=== PATIENT | female | born 1960 | race Caucasian/White ===

== ENCOUNTER 2017-03-17 07:46 | Emergency (ER) | payer MEDICAID ==
[2017-03-17 07:52] VITALS: BP 129/90; PULSE 127; RESP 22; TEMP 98.2; O2SAT 96
--- NOTE | 2017-03-17 08:21 | EDPHY ---
H & P Time Seen by Provider: 03/17/17 08:02 HPI/ROS: CHIEF COMPLAINT: Mental health evaluation. HISTORY OF PRESENT ILLNESS: This patient 56 year old female with history of PTSD presenting with manic affect and tangential thought process. She was recently admitted for three days in [place] for nausea and vomiting. She states she was also seen last week by [facility], and received a change in medications. Her father at bedside states this medication change "flipped her personality 180 degrees", and rather than being combative is now very sweet and helpful. This morning, she woke up very early and began to move furniture and throw things, and her father states she was not behaving rationally, so he called police for help. The patient states she is very happy and her sensation is similar to that after running a triathlon. She states she feel she needs to stay busy, and was only able to sleep four hours last night. She denies hallucinations or other associated symptoms. She denies suicidal or homicidal ideation. REVIEW OF SYSTEMS: Constitutional: No fever, no chills Eyes: No visual changes ENT: No sore throat Respiratory: No cough, no shortness of breath Cardiac: No chest pain Gastrointestinal: No nausea, no vomiting, no abdominal pain Genitourinary: No hematuria, no dysuria Musculoskeletal: No leg pain or swelling Skin: No rash Neurological: No headache, no numbness, no weakness Psychiatric: No depression Past Medical/Surgical History: PTSD Social History: Father at bedside. . Smoking Status: Former smoker Physical Exam: General Appearance: Alert, no distress Eyes: Pupils equal and round, no conjunctival pallor or injection ENT, Mouth: Mucous membranes moist Neck: Normal inspection Respiratory: Lungs are clear to auscultation Cardiovascular: Regular rate and rhythm Gastrointestinal: Abdomen is soft and non- tender Neurological: A&O, nonfocal, normal gait Skin: Warm and dry, no rash Extremities: Nontender, no pedal edema Psychiatric: Tangential thought process, appears manic. Constitutional: Initial Vital Signs Temperature (C) 36.8 C 03/17/17 07:50 Heart Rate 127 H 03/17/17 07:50 Respiratory Rate 22 H 03/17/17 07:50 Blood Pressure 129/90 H 03/17/17 07:50 O2 Sat (%) 96 03/17/17 07:50 O2 Delivery Mode Room Air Allergies/Adverse Reactions: haloperidol [From Haldol] Allergy (Verified 03/17/17 07:47) rigidity haloperidol lactate [From Haldol] Allergy (Verified 03/17/17 07:47) rigidity hydrocodone Allergy (Verified 03/17/17 07:47) Home Medications: Medication Instructions Recorded Herbals/Supplements -Info Only 1 ea PO DAILY 06/08/14 Ipratropium/Albuterol [Duoneb (*)] 3 ml IH PRN PRN 06/08/14 Multivitamins [Multivitamin (*)] 1 each PO DAILY 06/08/14 SUMAtriptan [Imitrex 50 MG (*)] 50 mg PO Q2H PRN 06/08/14 clonazePAM [Klonopin (*)] 0.5 mg PO DAILY PRN 06/08/14 clonazePAM [Klonopin (*)] 0.5 mg PO HS 06/08/14 traZODone [traZODONE 100MG (*)] 100 mg PO HS 06/08/14 Ondansetron Odt [Zofran Odt 4 mg 4 mg PO Q6 PRN #30 tab 06/12/14 (*)] Pantoprazole Sodium [Protonix 40mg 40 mg PO DAILY #30 tab 06/15/14 (*)] Albuterol [Proventil Inhaler HFA 1 - 2 puffs IH Q4PRN PRN #1 mdi 08/30/14 (*)] oxyCODONE/APAP 5/325 [Percocet 1 tab PO 11/06/15 5/325] Medical Decision Making ED Course/Re-evaluation: Medically cleared for mental health evaluation. This patient was seen by mental health and felt appropriate for outpatient treatment of hillary. I agree with this assessment. She does not meet criteria for a mental health hold. She states that she will follow up with mental health as suggested. Her father and usual therapist are in agreement with this plan. Differential Diagnosis: Differential diagnosis includes though it is not limited to suicidal ideation, overdose, acute psychosis, self-injury, alcohol withdrawal. - Data Points Laboratory Results: Laboratory Results 03/17/17 09:05 03/17/17 09:05 03/17/17 03/17/17 03/17/17 09:05 09:05 09:05 WBC RBC Hgb Hct MCV MCH MCHC RDW Plt Count MPV Neut % (Auto) Lymph % (Auto) Cavalier % (Auto) Eos % (Auto) Baso % (Auto) Nucleat RBC Rel Count Absolute Neuts (auto) Absolute Lymphs (auto) Absolute Monos (auto) Absolute Eos (auto) Absolute Basos (auto) Absolute Nucleated RBC Immature Gran % Immature Gran # Sodium 139 mEq/L mEq/L (134-144) Potassium 3.8 mEq/L mEq/L (3.5-5.2) Chloride 103 mEq/L mEq/L (97-110) Carbon Dioxide 24 mEq/l mEq/l (22-31) Anion Gap 12 mEq/L mEq/L (8-16) BUN 8 mg/dL mg/dL (7-23) Creatinine 0.8 mg/dL mg/dL (0.6-1.0) Estimated GFR > 60 Glucose 79 mg/dL mg/dL (70-100) Calcium 9.7 mg/dL mg/dL (8.5-10.4) Beta HCG, Qual NEGATIVE Urine Opiates Screen NEGATIVE (NEGATIVE) Urine Barbiturates NEGATIVE (NEGATIVE) Ur Phencyclidine Scrn NEGATIVE (NEGATIVE) Ur Amphetamine Screen NEGATIVE (NEGATIVE) U Benzodiazepines Scrn NEGATIVE (NEGATIVE) Urine Cocaine Screen NEGATIVE (NEGATIVE) U Marijuana (THC) Screen NON-NEGATIVE H (NEGATIVE) Ethyl Alcohol < 10 mg/dL mg/dL (0-10) 03/17/17 09:05 WBC 7.27 10^3/uL 10^3/uL (3.80-9.50) RBC 4.89 10^6/uL 10^6/uL (4.18-5.33) Hgb 15.3 g/dL g/dL (12.6-16.3) Hct 43.2 % % (38.0-47.0) MCV 88.3 fL fL (81.5-99.8) MCH 31.3 pg pg (27.9-34.1) MCHC 35.4 g/dL g/dL (32.4-36.7) RDW 12.3 % % (11.5-15.2) Plt Count 227 10^3/uL 10^3/uL (150-400) MPV 9.9 fL fL (8.7-11.7) Neut % (Auto) 77.5 % H % (39.3-74.2) Lymph % (Auto) 12.0 % L % (15.0-45.0) Cavalier % (Auto) 9.8 % % (4.5-13.0) Eos % (Auto) 0.0 % L % (0.6-7.6) Baso % (Auto) 0.3 % % (0.3-1.7) Nucleat RBC Rel Count 0.0 % % (0.0-0.2) Absolute Neuts (auto) 5.64 10^3/uL 10^3/uL (1.70-6.50) Absolute Lymphs (auto) 0.87 10^3/uL L 10^3/uL (1.00-3.00) Absolute Monos (auto) 0.71 10^3/uL 10^3/uL (0.30-0.80) Absolute Eos (auto) 0.00 10^3/uL L 10^3/uL (0.03-0.40) Absolute Basos (auto) 0.02 10^3/uL 10^3/uL (0.02-0.10) Absolute Nucleated RBC 0.00 10^3/uL 10^3/uL (0-0.01) Immature Gran % 0.4 % % (0.0-1.1) Immature Gran # 0.03 10^3/uL 10^3/uL (0.00-0.10) Sodium Potassium Chloride Carbon Dioxide Anion Gap BUN Creatinine Estimated GFR Glucose Calcium Beta HCG, Qual Urine Opiates Screen Urine Barbiturates Ur Phencyclidine Scrn Ur Amphetamine Screen U Benzodiazepines Scrn Urine Cocaine Screen U Marijuana (THC) Screen Ethyl Alcohol Departure - Departure Disposition: Home, Routine, Self-Care Clinical Impression: Hillary Condition: Good Instructions: Bipolar Disorder (ED) Additional Instructions: Follow-up with mental health as suggested. Return for worsening symptoms or any concerns. Referrals: ERICK LOPEZ MD [Other] - As per Instructions Report Scribed for: Autumn Rebolledo Report Scribed by: Lakesha Short Date of Report: 03/17/17 Time of Report: 08:05 Physician Review and Approval Statement: 03/17/17 08:05 Portions of this note were transcribed by a electromedical equipment repairer. I personally performed a history, physical exam, medical decision making, and confirmed accuracy of information the transcribed note.
[2017-03-17 09:11] LABS: % IMMATURE GRANULYOCYTES 0.4 % (0.0-1.1); ABSOLUTE IMMATURE GRANULOCYTES 0.03 10^3/uL (0.00-0.10); ADD DIFF? NO; ADD MORPH? NO; ADD SCAN? NO; ATYPICAL LYMPHOCYTE FLAG 10 (0-99); FRAGMENT RBC FLAG 0 (0-99); HEMATOCRIT 43.2 % (38.0-47.0); HEMOGLOBIN 15.3 g/dL (12.6-16.3); LEFT SHIFT FLG 0 (0-99); LIPEMIA HEMOLYSIS FLAG 90 (0-99); MEAN CELL HEMOGLOBIN 31.3 pg (27.9-34.1); MEAN CELL HEMOGLOBIN CONCENTR. 35.4 g/dL (32.4-36.7); MEAN CELL VOLUME 88.3 fL (81.5-99.8); MEAN PLATELET VOLUME 9.9 fL (8.7-11.7); PLATELET CLUMPS FLAG 0 (0-99); PLATELET COUNT 227 10^3/uL (150-400); RED BLOOD CELL COUNT 4.89 10^6/uL (4.18-5.33); RED CELL DISTRIBUTION WIDTH 12.3 % (11.5-15.2)
[2017-03-17 09:25] LABS: ANION GAP 12 mEq/L (8-16); CALCIUM 9.7 mg/dL (8.5-10.4); CARBON DIOXIDE 24 mEq/l (22-31); CHLORIDE 103 mEq/L (97-110); CREATININE 0.8 mg/dL (0.6-1.0); ETHANOL SERUM < 10 mg/dL (0-10); GLOMERULAR FILTRATION RATE > 60; GLUCOSE 79 mg/dL (70-100); POTASSIUM 3.8 mEq/L (3.5-5.2); SODIUM 139 mEq/L (134-144)
== END 2017-03-17 15:15 | disposition home or self-care (01) ==
DX: F30.9 Manic episode, unspecified (principal); Z87.891 Personal history of nicotine dependence
CPT/HCPCS: 80305; G0480

== ENCOUNTER 2017-03-27 22:56 | Emergency (ER) | payer MEDICAID ==
[2017-03-27 23:11] VITALS: BP 134/79; PULSE 95; RESP 16; TEMP 98.4; O2SAT 95
[2017-03-28] MEDS ORDERED: CEPHALEXIN 500MG PREPACK#4 BTL TAKEHOME ONE (00:06)
[2017-03-28] MEDS ORDERED: CEPHALEXIN 500 MG CAP PO ONE (00:06)
--- NOTE | 2017-03-28 00:06 | EDPHY ---
H & P Stated Complaint: pt c/o swelling/redness in L thumb after inadvertently poking with needle - Personal History Tetanus Vaccine Date: 2014 - Medical/Surgical History Hx Asthma: Yes Hx Chronic Respiratory Disease: No Hx Diabetes: No Hx Cardiac Disease: No Hx Renal Disease: Yes Hx Cirrhosis: No Hx Alcoholism: No Hx HIV/AIDS: No Hx Splenectomy or Spleen Trauma: No Other PMH: medical PTSD, fibromyalgia, adrenal fatigue, asthma. surgery cyst removal left ovary; L oophrectomy;, orif R ankle, breast implants - Social History Smoking Status: Former smoker Time Seen by Provider: 03/28/17 00:00 HPI/ROS: Chief complaint: Left thumb pain and swelling History of present illness: This is a 56-year-old female who presents to the emergency department for evaluation of left thumb pain and swelling. Earlier today she was sweeping up the floor when she accidentally pushed a sewing needle into her left thumb. She is now developing mild pain and swelling around the site poke her. It is slowly worsening. She denies associated signs or symptoms including no fevers, no difficulty moving the thumb, no red streaking up the thumb onto the hand or arm, no abnormal coolness or paresthesias in the thumb. (Dennis Tejada) - Physical Exam Exam: General: Alert, nontoxic Skin: Mild erythema and edema to the distal tip of the thumb. No red streaking up the thumb. Musculoskeletal: Patient is moving her PIP and MCP joint in all of the left thumb without difficulty. No evidence of tenosynovitis at this time. Vascular: Capillary refill brisk in the thumb. Radial pulse 2 +. Neurologic: Sensation intact using light touch and two-point discrimination. ( Dennis Tejada) Constitutional: Initial Vital Signs Temperature (C) 36.9 C 03/27/17 23:06 Heart Rate 95 03/27/17 23:06 Respiratory Rate 16 03/27/17 23:06 Blood Pressure 134/79 H 03/27/17 23:06 O2 Sat (%) 95 03/27/17 23:06 O2 Delivery Mode Room Air Allergies/Adverse Reactions: gluten Allergy (Verified 03/27/17 23:11) haloperidol [From Haldol] Allergy (Verified 03/27/17 23:11) rigidity haloperidol lactate [From Haldol] Allergy (Verified 03/27/17 23:11) rigidity hydrocodone Allergy (Verified 03/27/17 23:11) walnut Allergy (Verified 03/27/17 23:11) Home Medications: Medication Instructions Recorded Herbals/Supplements -Info Only 1 ea PO DAILY 06/08/14 Ipratropium/Albuterol [Duoneb (*)] 3 ml IH PRN PRN 06/08/14 Multivitamins [Multivitamin (*)] 1 each PO DAILY 06/08/14 clonazePAM [Klonopin (*)] 0.5 mg PO DAILY PRN 06/08/14 clonazePAM [Klonopin (*)] 0.5 mg PO HS 06/08/14 traZODone [traZODONE 100MG (*)] 100 mg PO HS 06/08/14 Ondansetron Odt [Zofran Odt 4 mg 4 mg PO Q6 PRN #30 tab 06/12/14 (*)] Albuterol [Proventil Inhaler HFA 1 - 2 puffs IH Q4PRN PRN #1 mdi 08/30/14 (*)] Cephalexin [Keflex] 500 mg PO QID 7 Days 03/28/17 Medical Decision Making ED Course/Re-evaluation: Patient seen under the supervision of my secondary supervising physician Dr. Ananya Chow. Patient presents to the emergency department for pain and swelling to her left thumb after poking it with a sewing needle earlier today. I am concerned she is developing an infection. However I do not appreciate evidence of significant complications such as abscess or infectious tenosynovitis. She will be started on antibiotics. She is discharged home. Home care is discussed. She has been given strict return precautions. Patient voiced understanding and agreement with plan (Dennis Tejada) Differential Diagnosis: Included but not limited to inflammation from trauma, cellulitis, abscess, felon , unlikely tenosynovitis (Dennis Tejada) Other Provider: PHYSICIAN DOCUMENTATION: The patient was evaluated and managed by the Physician Cheese Cooker. My co- signature indicates that I have reviewed this chart and I agree with the findings and plan of care as documented. I am the secondary supervising physician. (Ananya Chow) - Data Points Medications Given: Discontinued Medications Cephalexin (Keflex 500 Mg Prepack#4) 1 btl TAKEHOME EDNOW ONE PRN Reason: Protocol Stop: 03/28/17 00:07 Last Admin: 03/28/17 00:09 Dose: 1 btl Cephalexin HCl (Keflex) 500 mg PO EDNOW ONE PRN Reason: Protocol Stop: 03/28/17 00:07 Last Admin: 03/28/17 00:13 Dose: 500 mg Departure - Departure Disposition: Home, Routine, Self-Care Clinical Impression: Cellulitis of left thumb Condition: Good Instructions: Cephalexin (By mouth), Cellulitis (ED) Additional Instructions: Follow-up with the primary care doctor or hand doctor on Friday for recheck If symptoms worsen or new symptoms develop return to the emergency room for recheck Referrals: NONE *PRIMARY CARE P,. [Unknown] - As per Instructions Dawood Hayden MD [Medical Doctor] - As per Instructions Prescriptions: Cephalexin [Keflex] 500 mg PO QID 7 Days
== END 2017-03-28 00:14 | disposition home or self-care (01) ==
DX: L03.012 Cellulitis of left finger (principal); J45.909 Unspecified asthma, uncomplicated; Z87.891 Personal history of nicotine dependence

== ENCOUNTER 2017-05-22 13:25 | Emergency (ER) | payer MEDICAID ==
[2017-05-22 13:37] VITALS: TEMP 97.5
[2017-05-22] MEDS ORDERED: ONDANSETRON 4 MG/2 ML VIAL IVP ONE (14:18)
[2017-05-22] MEDS ORDERED: NS 1,000 ML IV ONE ×2 (14:18→15:42)
[2017-05-22 14:33] LABS: % IMMATURE GRANULYOCYTES 0.6 % (0.0-1.1); ABSOLUTE IMMATURE GRANULOCYTES 0.04 10^3/uL (0.00-0.10); ADD DIFF? NO; ADD MORPH? NO; ADD SCAN? NO; ATYPICAL LYMPHOCYTE FLAG 0 (0-99); FRAGMENT RBC FLAG 0 (0-99); HEMATOCRIT 47.9 % (38.0-47.0); HEMOGLOBIN 17.1 g/dL (12.6-16.3); LEFT SHIFT FLG 0 (0-99); LIPEMIA HEMOLYSIS FLAG 90 (0-99); MEAN CELL HEMOGLOBIN 31.3 pg (27.9-34.1); MEAN CELL HEMOGLOBIN CONCENTR. 35.7 g/dL (32.4-36.7); MEAN CELL VOLUME 87.6 fL (81.5-99.8); PLATELET CLUMPS FLAG 10 (0-99); PLATELET COUNT 229 10^3/uL (150-400); RED BLOOD CELL COUNT 5.47 10^6/uL (4.18-5.33); RED CELL DISTRIBUTION WIDTH 11.8 % (11.5-15.2)
--- NOTE | 2017-05-22 14:34 | EDPHY ---
HPI/HX/ROS/PE/MDM Narrative: CHIEF COMPLAINT: Abdominal pain HISTORY OF PRESENT ILLNESS: This patient is a 56 year old female complaining of burning abdominal pain and vomiting onset yesterday. She was hospitalized on father's day with GI problems , and was diagnosed with an ulcer at that time. She states she has had a very stressful month, and has been overworking and not able to sleep much. She began to note symptoms on Friday, and began taking her prescribed proton pump inhibitor. She was unable to control her symptoms with this, and now describes a burning pain in her epigastric region. She has vomited 15-20 times, and endorses some diarrhea this morning. She generally takes medical cannabis oil, but has not used this since she began throwing up. She denies contact with any ill persons with similar symptoms. No history of abdominal surgeries. Her last endoscopy was around one year ago. No fever, chills, chest pain, shortness of breath, palpitations, urinary complaints, headache, lightheadedness. REVIEW OF SYSTEMS: Aside from elements discussed in the HPI, a comprehensive 10-point review of systems was reviewed and is negative. PAST MEDICAL HISTORY: Gluten intolerance. Asthma. Ulcers. PTSD. Ovary removal. SOCIAL HISTORY: Denies alcohol use. Medical cannabis oil. PCP at [facility]. VITAL SIGNS: Reviewed by me GENERAL: Well-developed, well-nourished, resting comfortably in no respiratory distress. HEENT: Atraumatic. Eyes: No icterus, no injection. Mouth: dry mucous membranes. No erythema or lesions. Neck: supple with no adenopathy. LUNGS: Clear to auscultation bilaterally, no wheezes, rhonchi or rales. CARDIAC: Regular rate and rhythm, no rubs, murmurs or gallops. ABDOMEN: Epigastric, right and left upper quadrant tenderness with voluntary guarding., right lower quadrant tenderness. Soft, nondistended, bowel sounds normal. BACK: No CVA tenderness. EXTREMITIES: No trauma. No edema. Range of motion is normal throughout. NEURO: Alert and oriented, grossly nonfocal. SKIN: Warm and dry, no rash. PSYCHIATRIC: Normal mentation, no agitation. Portions of this note were transcribed by a bilingual medical receptionist. I personally performed a history, physical exam, medical decision making, and confirmed accuracy of information the transcribed note. ED Course: 56 year old female presents with four day history of worsening abdominal pain, vomiting, and diarrhea. Plan for labs including CBC, BMP, liver, lipase, and H- pylori. Plan to administer 40mg IV Protonix, 12.5mg IV Phenergan, 50mcg IV fentanyl, and 1L IV NS for symptom relief. H-pylori antibody screening negative. On re-examination the patient reports significant improvement in her symptoms. She has no abdominal tenderness. CT scan initially had been ordered, however, the patient would much prefer not to undergo CT scanning. Laboratory evaluation demonstrates normal LFTs and normal lipase. Patient is comfortable being discharged home with Phenergan to use for nausea and vomiting and will restart her PPI. She will follow up with her primary care physician. She was able tolerate p. o. fluids in the emergency department. MDM: Differential diagnosis for the patient's upper abdominal pain and vomiting was considered including but not limited to cholecystitis, gastritis, peptic ulcers disease, and pancreatitis. - Data Points Laboratory Results: Laboratory Results 05/22/17 14:23 05/22/17 14:23 Medications Given: Discontinued Medications Fentanyl (Sublimaze) 50 mcg IVP EDNOW ONE Stop: 05/22/17 15:45 Last Admin: 05/22/17 15:57 Dose: Not Given Sodium Chloride (Ns) 1,000 mls @ 0 mls/hr IV ONCE ONE; Wide Open PRN Reason: Protocol Stop: 05/22/17 14:19 Last Admin: 05/22/17 14:20 Dose: 1,000 mls Sodium Chloride (Ns) 1,000 mls @ 0 mls/hr IV ONCE ONE; Wide Open PRN Reason: Protocol Stop: 05/22/17 15:43 Last Admin: 05/22/17 15:55 Dose: 1,000 mls Ondansetron HCl (Zofran) 4 mg IVP EDNOW ONE Stop: 05/22/17 14:19 Last Admin: 05/22/17 14:20 Dose: 4 mg Pantoprazole Sodium (Protonix) 40 mg IVP EDNOW ONE Stop: 05/22/17 14:43 Last Admin: 05/22/17 14:54 Dose: 40 mg Promethazine HCl (Phenergan) 12.5 mg IVP EDNOW ONE Stop: 05/22/17 14:40 Last Admin: 05/22/17 14:54 Dose: 12.5 mg General Time Seen by Provider: 05/22/17 14:22 Initial Vital Signs: Initial Vital Signs Temperature (C) 36.4 C 05/22/17 13:31 Heart Rate 92 05/22/17 13:31 Respiratory Rate 20 05/22/17 13:31 Blood Pressure 172/104 H 05/22/17 13:31 O2 Sat (%) 95 05/22/17 13:31 O2 Delivery Mode Room Air Allergies/Adverse Reactions: gluten Allergy (Verified 05/22/17 13:30) haloperidol [From Haldol] Allergy (Verified 05/22/17 13:30) rigidity haloperidol lactate [From Haldol] Allergy (Verified 05/22/17 13:30) rigidity hydrocodone Allergy (Verified 05/22/17 13:30) walnut Allergy (Verified 05/22/17 13:30) Home Medications: Medication Instructions Recorded Herbals/Supplements -Info Only 1 ea PO DAILY 06/08/14 Ipratropium/Albuterol [Duoneb (*)] 3 ml IH PRN PRN 06/08/14 Multivitamins [Multivitamin (*)] 1 each PO DAILY 06/08/14 clonazePAM [Klonopin (*)] 0.5 mg PO DAILY PRN 06/08/14 clonazePAM [Klonopin (*)] 0.5 mg PO HS 06/08/14 traZODone [traZODONE 100MG (*)] 100 mg PO HS 06/08/14 Ondansetron Odt [Zofran Odt 4 mg 4 mg PO Q6 PRN #30 tab 06/12/14 (*)] Albuterol [Proventil Inhaler HFA 1 - 2 puffs IH Q4PRN PRN #1 mdi 08/30/14 (*)] Cephalexin [Keflex] 500 mg PO QID 7 Days cap 03/28/17 Promethazine HCl [Phenergan 12.5mg 12.5 mg IA TID PRN #10 suppr 05/22/17 supp (*)] Promethazine HCl [Phenergan 25mg 12.5 - 25 mg PO TID PRN #10 tab 05/22/17 (*)] Departure - Departure Disposition: Home, Routine, Self-Care Clinical Impression: Abdominal pain Qualifiers: Abdominal location: epigastric Qualified Code(s): R10.13 - Epigastric pain Gastritis Qualifiers: Gastritis type: other gastritis Chronicity: acute Gastritis bleeding: presence of bleeding unspecified Qualified Code(s): K29.00 - Acute gastritis without bleeding Condition: Good Instructions: Gastritis (ED), Diet for Stomach Ulcers and Gastritis (ED) Additional Instructions: I recommend you begin taking Prilosec or other PPIs for a 2 week course. Please follow up with your travel accommodation inspector as soon as possible. You may use Phenergan as needed for nausea and vomiting. You been given both an oral prescription as well as a rectal suppository. Please use 1 or the other but not both at the same time. If your nausea and vomiting is not controlled with Phenergan, if your pain becomes more severe, and is not controlled with Maalox, Prilosec, etc, please return to the emergency department or seek care urgently. Referrals: LINDA DELGADO [Other] - As per Instructions Prescriptions: Promethazine HCl [Phenergan 12.5mg supp (*)] 12.5 mg IA TID PRN #10 suppr PRN Reason: nausea, vomiting Promethazine HCl [Phenergan 25mg (*)] 12.5 - 25 mg PO TID PRN #10 tab PRN Reason: nausea, vomiting Report Scribed for: Aisha Joseph Report Scribed by: Lakesha Short Date of Report: 05/22/17 Time of Report: 17:22
[2017-05-22] MEDS ORDERED: PROMETHAZINE HCL 25 MG/ML INJ IVP ONE (14:39)
[2017-05-22] MEDS ORDERED: PANTOPRAZOLE SODIUM 40 MG VIAL IVP ONE (14:42)
[2017-05-22 14:44] LABS: ANION GAP 14 mEq/L (8-16); CALCIUM 9.6 mg/dL (8.5-10.4); CARBON DIOXIDE 22 mEq/l (22-31); CHLORIDE 103 mEq/L (97-110); CREATININE 0.6 mg/dL (0.6-1.0); GLOMERULAR FILTRATION RATE > 60; GLUCOSE 142 mg/dL (70-100); SODIUM 139 mEq/L (134-144)
[2017-05-22 14:55] LABS: ALANINE AMINOTRANSFERASE 31 IU/L (9-52); ALBUMIN 4.3 g/dL (3.5-5.0); ALKALINE PHOSPHATASE 70 IU/L (38-126); ASPARTATE AMINOTRANSFERASE 23 IU/L (14-46); BILIRUBIN,TOTAL 0.7 mg/dL (0.1-1.4); BILIRUBIN-CONJUGATED 0.2 mg/dL (0.0-0.5); BILIRUBIN-UNCONJUGATED 0.5 mg/dL (0.0-1.1); TOTAL PROTEIN 6.8 g/dL (6.3-8.2)
[2017-05-22] MEDS ORDERED: IOPAMIDOL (ISOVUE-300) 100 ML BTL ONE (15:36)
[2017-05-22] MEDS ORDERED: fentaNYL 100 MCG/2 ML INJ IVP ONE (15:44)
[2017-05-22 18:01] VITALS: BP 135/64; PULSE 79; RESP 16; O2SAT 97
== END 2017-05-22 17:58 | disposition home or self-care (01) ==
DX: K29.00 Acute gastritis without bleeding (principal); J45.909 Unspecified asthma, uncomplicated; E86.9 Volume depletion, unspecified
CPT/HCPCS: 96374; J2405; J2550; J3010; Q9967

== ENCOUNTER 2017-05-24 10:38 | Observation (INO) | payer MEDICAID ==
[2017-05-24] MEDS ORDERED: NS 1,000 ML IV ONE ×2 (11:30→11:42)
[2017-05-24] MEDS ORDERED: PROMETHAZINE HCL 25 MG/ML INJ IVP ONE (11:42)
[2017-05-24] MEDS ORDERED: PANTOPRAZOLE SODIUM 40 MG in NS 100 ML IV ONE (11:42)
--- NOTE | 2017-05-24 11:42 | EDPHY ---
H & P Time Seen by Provider: 05/24/17 10:56 HPI/ROS: Chief complaint. Nausea and vomiting HPI. A 56-year-old female presents with epigastric burning type pain. She says "I have an ulcer ". Nausea and vomiting for 1 day. Seen 2 days ago in our emergency department for same symptoms. Diagnosis was gastritis. She is using Zofran Phenergan suppositories with inadequate relief. Some of her epigastric discomfort radiates through to her back. She has had similar symptoms previously ROS Constitutional. no fever/chills, no weakness Eyes. no problems with vision ENT. no sore throat, no nasal drainage Cardiovascular. no chest pain Respiratory. no shortness of breath, no cough Abdominal. Epigastric burning type pain with nausea and . no problems urinating MS. no calf pain/swelling, no neck/back pain, no joint pain Skin. no rash Lymph. no swollen glands Neuro. no headache, no dizziness, no difficulty walking or with speech Past Medical/Surgical History: Past medical history is significant for PTSD, fibromyalgia, adrenal fatigue, asthma, oophorectomy, peptic ulcer disease Social History: , nonsmoker, no alcohol Smoking Status: Former smoker Physical Exam: General Appearance: Alert well-developed female moderate distress vital signs significant for blood pressure 178/115 Eyes: Pupils equal and round no pallor or injection. ENT, Mouth: Mucous membranes are moist. Respiratory: There are no retractions, lungs are clear to auscultation. Cardiovascular: Regular rate and rhythm. Gastrointestinal: Abdomen is soft with epigastric tenderness. No masses. Normal bowel sounds Neurological: Awake and alert, sensory and motor exams grossly normal. Skin: Warm and dry, no rashes. Musculoskeletal: Neck is supple nontender. Extremities symmetrical, full range of motion. Psychiatric: Patient is oriented X 3, there is no agitation. Constitutional: Initial Vital Signs Temperature (C) 36.0 C 05/24/17 10:46 Heart Rate 72 05/24/17 10:46 Respiratory Rate 16 05/24/17 10:46 Blood Pressure 178/115 H 05/24/17 10:46 O2 Sat (%) 100 05/24/17 10:46 O2 Delivery Mode Room Air Allergies/Adverse Reactions: gluten Allergy (Verified 05/22/17 13:30) haloperidol [From Haldol] Allergy (Verified 05/22/17 13:30) rigidity haloperidol lactate [From Haldol] Allergy (Verified 05/22/17 13:30) rigidity hydrocodone Allergy (Verified 05/22/17 13:30) walnut Allergy (Verified 05/22/17 13:30) Home Medications: Medication Instructions Recorded Herbals/Supplements -Info Only 1 ea PO DAILY 06/08/14 Ipratropium/Albuterol [Duoneb (*)] 3 ml IH PRN PRN 06/08/14 Multivitamins [Multivitamin (*)] 1 each PO DAILY 06/08/14 clonazePAM [Klonopin (*)] 0.5 mg PO DAILY PRN 06/08/14 clonazePAM [Klonopin (*)] 0.5 mg PO HS 06/08/14 traZODone [traZODONE 100MG (*)] 100 mg PO HS 06/08/14 Ondansetron Odt [Zofran Odt 4 mg 4 mg PO Q6 PRN #30 tab 06/12/14 (*)] Albuterol [Proventil Inhaler HFA 1 - 2 puffs IH Q4PRN PRN #1 mdi 08/30/14 (*)] Cephalexin [Keflex] 500 mg PO QID 7 Days cap 03/28/17 Promethazine HCl [Phenergan 12.5mg 12.5 mg ND TID PRN #10 suppr 05/22/17 supp (*)] Promethazine HCl [Phenergan 25mg 12.5 - 25 mg PO TID PRN #10 tab 05/22/17 (*)] Medical Decision Making Procedures: IV normal saline. IV Phenergan. IV Protonix ED Course/Re-evaluation: Re-evaluation 1:35 p.m.. Patient complains of continued nausea. She will be given further IV Zofran. Re-evaluation 2:50 p.m.. Patient is taking fluids. She feels much better and no complaints no nausea or vomiting. No abdominal pain Patient and I discussed laboratory evaluation, treatment plan including criteria for return importance of follow-up further evaluation. She expresses understanding and agreement Differential Diagnosis: This is like gastritis. Possible peptic ulcer disease. I considered pancreatitis as well. - Data Points Laboratory Results: Laboratory Results 05/24/17 11:10 05/24/17 11:10 05/24/17 05/24/17 11:10 11:10 WBC 9.78 10^3/uL H 10^3/uL (3.80-9.50) RBC 5.29 10^6/uL 10^6/uL (4.18-5.33) Hgb 16.4 g/dL H g/dL (12.6-16.3) Hct 46.2 % % (38.0-47.0) MCV 87.3 fL fL (81.5-99.8) MCH 31.0 pg pg (27.9-34.1) MCHC 35.5 g/dL g/dL (32.4-36.7) RDW 11.7 % % (11.5-15.2) Plt Count 219 10^3/uL 10^3/uL (150-400) MPV 10.5 fL fL (8.7-11.7) Neut % (Auto) 87.4 % H % (39.3-74.2) Lymph % (Auto) 7.9 % L % (15.0-45.0) [place] % (Auto) 3.9 % L % (4.5-13.0) Eos % (Auto) 0.1 % L % (0.6-7.6) Baso % (Auto) 0.2 % L % (0.3-1.7) Nucleat RBC Rel Count 0.0 % % (0.0-0.2) Absolute Neuts (auto) 8.55 10^3/uL H 10^3/uL (1.70-6.50) Absolute Lymphs (auto) 0.77 10^3/uL L 10^3/uL (1.00-3.00) Absolute Monos (auto) 0.38 10^3/uL 10^3/uL (0.30-0.80) Absolute Eos (auto) 0.01 10^3/uL L 10^3/uL (0.03-0.40) Absolute Basos (auto) 0.02 10^3/uL 10^3/uL (0.02-0.10) Absolute Nucleated RBC 0.00 10^3/uL 10^3/uL (0-0.01) Immature Gran % 0.5 % % (0.0-1.1) Immature Gran # 0.05 10^3/uL 10^3/uL (0.00-0.10) Sodium 139 mEq/L mEq/L (134-144) Potassium 3.4 mEq/L L mEq/L (3.5-5.2) Chloride 102 mEq/L mEq/L (97-110) Carbon Dioxide 22 mEq/l mEq/l (22-31) Anion Gap 15 mEq/L mEq/L (8-16) BUN 13 mg/dL mg/dL (7-23) Creatinine 0.7 mg/dL mg/dL (0.6-1.0) Estimated GFR > 60 Glucose 145 mg/dL H mg/dL (70-100) Calcium 9.5 mg/dL mg/dL (8.5-10.4) Lipase 104 IU/L IU/L (23-300) Medications Given: Discontinued Medications Sodium Chloride (Ns) 1,000 mls @ 0 mls/hr IV ONCE ONE PRN Reason: Wide Open Stop: 05/24/17 11:31 Last Admin: 05/24/17 11:34 Dose: 1,000 mls Sodium Chloride (Ns) 1,000 mls @ 0 mls/hr IV EDNOW ONE; Wide Open PRN Reason: Protocol Stop: 05/24/17 11:43 Last Admin: 05/24/17 12:51 Dose: 1,000 mls Pantoprazole Sodium 40 mg/ (Sodium Chloride) 100 mls @ 200 mls/hr IV EDNOW ONE Stop: 05/24/17 12:11 Last Admin: 05/24/17 12:09 Dose: 100 mls Ondansetron HCl (Zofran) 4 mg IVP EDNOW ONE Stop: 05/24/17 13:41 Last Admin: 05/24/17 13:48 Dose: 4 mg Promethazine HCl (Phenergan) 12.5 mg IVP EDNOW ONE Stop: 05/24/17 11:43 Last Admin: 05/24/17 12:05 Dose: 12.5 mg Departure - Departure Disposition: Home, Routine, Self-Care Clinical Impression: Gastritis Qualifiers: Gastritis type: unspecified gastritis Chronicity: acute Gastritis bleeding: without bleeding Qualified Code(s): K29.00 - Acute gastritis without bleeding Condition: Good Instructions: Gastritis (ED) Additional Instructions: Continue your proton pump inhibitor. Then after a total of 7-10 days of using this may use Prilosec, Zantac, or Pepcid from the supermarket. May also supplement with liquid antacid such as Maalox or Mylanta. Frequent, small sips fluids well nauseated. Gradual diet advancement. Return for worsening symptoms. Re-evaluation in 2-3 days if not continuing to improve Referrals: VICKIE DELGADO [Other] - 2-3 days, if not improved
[2017-05-24 11:48] LABS: % IMMATURE GRANULYOCYTES 0.5 % (0.0-1.1); ABSOLUTE IMMATURE GRANULOCYTES 0.05 10^3/uL (0.00-0.10); ADD DIFF? NO; ADD MORPH? NO; ADD SCAN? NO; ATYPICAL LYMPHOCYTE FLAG 20 (0-99); FRAGMENT RBC FLAG 0 (0-99); HEMATOCRIT 46.2 % (38.0-47.0); HEMOGLOBIN 16.4 g/dL (12.6-16.3); LEFT SHIFT FLG 0 (0-99); LIPEMIA HEMOLYSIS FLAG 90 (0-99); MEAN CELL HEMOGLOBIN CONCENTR. 35.5 g/dL (32.4-36.7); MEAN CELL VOLUME 87.3 fL (81.5-99.8); MEAN PLATELET VOLUME 10.5 fL (8.7-11.7); PLATELET CLUMPS FLAG 10 (0-99); PLATELET COUNT 219 10^3/uL (150-400); RED BLOOD CELL COUNT 5.29 10^6/uL (4.18-5.33); RED CELL DISTRIBUTION WIDTH 11.7 % (11.5-15.2)
[2017-05-24 11:53] LABS: ANION GAP 15 mEq/L (8-16); CALCIUM 9.5 mg/dL (8.5-10.4); CARBON DIOXIDE 22 mEq/l (22-31); CHLORIDE 102 mEq/L (97-110); CREATININE 0.7 mg/dL (0.6-1.0); GLOMERULAR FILTRATION RATE > 60; GLUCOSE 145 mg/dL (70-100); POTASSIUM 3.4 mEq/L (3.5-5.2); SODIUM 139 mEq/L (134-144)
[2017-05-24] MEDS ORDERED: ONDANSETRON 4 MG/2 ML VIAL IVP ONE ×2 (13:40→15:29)
[2017-05-24] MEDS ORDERED: LORazepam 2 MG/ML INJ IVP ONE (16:15)
[2017-05-24] MEDS ORDERED: LORazepam 2 MG/ML INJ ONE (16:15)
[2017-05-24] MEDS ORDERED: PROMETHAZINE HCL 25 MG/ML INJ IVP PRN (17:05)
[2017-05-24] MEDS ORDERED: ACETAMINOPHEN 325 MG TAB PO PRN (17:05)
[2017-05-24] MEDS ORDERED: LORazepam 1 MG TAB PO PRN (17:05)
[2017-05-24] MEDS ORDERED: ONDANSETRON 4 MG/2 ML VIAL IVP PRN (17:05)
[2017-05-24] MEDS ORDERED: ALBUTEROL 60 PUFFS/8 GM MDI IH PRN (17:06)
--- NOTE | 2017-05-24 17:26 | GHP ---
[f rep st] HISTORY AND PHYSICAL DATE OF ADMISSION: 05/24/2017 CHIEF COMPLAINT: Intractable nausea, vomiting. HISTORY OF PRESENT ILLNESS: This is a 56-year-old female with a history of bouts of intractable naus ea and vomiting, the last of which was in February of this year where she was hospitalized in [facility]. She presented to the Emergency Department on 05/22/2017 for vomiting, and was discharged with wha t sounds like promethazine. Over the past few days she has gotten worse. She was in bed all day yes terday and really unable to eat or drink anything. This morning she awoke, took a few bites of scram bled eggs, and had a bout of nausea and vomiting. She denies any bloody emesis or coffee-grounds priay sis. She denies any black tarry stools or bright red blood per rectum. She does have hemorrhoids. She has been diagnosed with gastritis in the past, as well as gluten intolerance. The patient had en doscopy about a year ago. PAST MEDICAL HISTORY: 1. Gastritis. 2. PTSD. 3. Adrenal fatigue. 4. Fibromyalgia. 5. Gastric ulcer disease. 6. Gluten intolerance. PAST SURGICAL HISTORY: Oophorectomy due to ovarian cyst. MEDICATIONS: Reviewed. Refer to [employer] for details. ALLERGIES: Gluten, Haldol, hydrocodone, walnuts. SOCIAL HISTORY: She denies any alcohol use. She uses medical cannabis oil. She denies any tobacco or other illicit drug use. FAMILY HISTORY: Significant for ovarian cancer in her mother. TIA in her father. REVIEW OF SYSTEMS: Comprehensive 10-point review of systems was done and is negative, except for as mentioned in the HPI. PHYSICAL EXAM: VITAL SIGNS: Blood pressure 121/81, pulse of 83, respiratory rate 16, O2 saturation 99% on room air. Temperature afebrile. GENERAL: No acute distress. HEAD: Normocephalic, atraumat ic. EYES: PERRLA. Sclerae anicteric. MOUTH: Moist mucous membranes. NECK: Supple. No lymphade nopathy. CARDIOVASCULAR: S1, S2. No murmurs, rubs, clicks, gallops, or JVD. No lower extremity ed noelle. PULMONARY: Lungs are clear. No wheezes, rales, or rhonchi. ABDOMEN: Soft, nontender, nondis tended. No guarding or rebound tenderness. Normoactive bowel sounds. EXTREMITIES: No clubbing or cyanosis. NEURO: Cranial nerves 2-12 grossly intact. No focal motor or sensory deficits. SKIN: C lear. No rashes. DIAGNOSTICS: WBC is 9.7, hemoglobin 16.4, hematocrit 46.2, platelets 219, sodium 139, potassium 3.4, chloride 102, BUN 13, creatinine 0.7, glucose 145. Lipase within normal limits. H pylori done 03/2017 was negative. ASSESSMENT AND PLAN: This is a 56-year-old female presenting with: 1. Intractable nausea and vomiting that have been going on for a week. The patient will be placed o n observation, where we will treat her symptoms symptomatically with IV fluids, Ativan, and antiemeti cs. 2. Mild hypokalemia. We will start IV fluids containing potassium, and repeat a chemistry panel in the morning. /[id number]/MODL
[2017-05-24] MEDS: D5W 1/2 NS W/ 20 KCl/L 1,000 ML IV SCH (17:39)
[2017-05-24] MEDS ORDERED: ALBUTEROL 3 ML DEYVIAL IH ONE (20:30)
[2017-05-24] MEDS ORDERED: traZODone 100 MG TAB PO SCH (21:00)
[2017-05-25] MEDS: D5W 1/2 NS W/ 20 KCl/L 1,000 ML IV SCH (02:02)
[2017-05-25 03:46] VITALS: O2SAT 97
[2017-05-25 04:57] LABS: ANION GAP 9 mEq/L (8-16); CALCIUM 9.1 mg/dL (8.5-10.4); CARBON DIOXIDE 25 mEq/l (22-31); CHLORIDE 106 mEq/L (97-110); CREATININE 0.7 mg/dL (0.6-1.0); GLOMERULAR FILTRATION RATE > 60; GLUCOSE 93 mg/dL (70-100); POTASSIUM 3.9 mEq/L (3.5-5.2); SODIUM 140 mEq/L (134-144)
[2017-05-25 11:42] VITALS: BP 141/84; PULSE 97; RESP 18; TEMP 98.5
--- NOTE | 2017-05-25 16:54 | PDDCSUM ---
Discharge Summary Discharge Summary: DISCHARGE SUMMARY FOLLOW-UP ITEMS: None DATE OF ADMISSION: 05/24/2017 DATE OF DISCHARGE: 05/25/17 DISCHARGE DIAGNOSES: 1. Acute nausea and vomiting 2. Suspected functional bowel disorder 3. Acute hypokalemia CONSULTATIONS: None PROCEDURES / IMAGING: None CHIEF COMPLAINT: Acute nausea and vomiting SUBJECTIVE: Patient is feeling better time of discharge, she is asymptomatic PHYSICAL EXAM ON DISCHARGE: Systolic blood pressure is 120, heart rate 70, afebrile overnight, satting well on room air, alert awake oriented x3, no apparent distress, pain level 0/10 LABS ON DISCHARGE: Creatinine 0.7, potassium 3.9 HOSPITAL COURSE BY PROBLEM: 1. Acute nausea and vomiting with suspected functional bowel disorder. The patient presented with acute abdominal symptoms rendering her unable to tolerate oral intake. The symptoms began in the context of significant amount of stress and disruption in her life. They resulted in hypokalemia and inability to tolerate oral intake. She requires observation overnight with IV fluids, symptom management. Patient's symptoms were effectively managed with Phenergan, and the patient feels confident returning home on her regular regimen of as needed Zofran, Phenergan suppository if needed. There may also be a gastritic component, and proton pump inhibitor is being provided for the patient, to be used as needed, and then follow up with her primary care provider. The patient will otherwise actively engage with her outpatient primary care and mental health providers. DISCHARGE MEDICATIONS: Please see official discharge medication reconciliation sheet in chart continue home meds, pantoprazole 40 mg once daily prescribed. DISCHARGE INSTRUCTIONS: Please follow up with her outpatient providers as soon as possible.
--- NOTE | 2017-05-25 18:15 | ASDISCHSUM ---
Discharge Information Plan Status:Home with No Needs Medically Cleared to Leave:05/25/2017 Discharge Date:05/25/2017 03:18 PM CM D/C Disposition:Home, Routine, Self-Care ADT D/C Disposition:Home, Routine, Self-Care Projected Discharge Date:05/25/2017 12:00 AM Transportation at D/C:Family Discharge Delay Reason: Follow-Up Date:05/25/2017 12:00 AM Discharge Slot: Final Diagnosis:Acute nausea, vomiting, acute hypokalemia Placement Information Patient Contact Information Contact Name:NAYA Relationship: Address:[address] City:[place] Alternate Phone: [facility]/Zip Code:[place] [address] Email: Financial Information Financial Class:MD Primary Plan Desc:[employer] Primary Plan Number:[id number] Secondary Plan Desc: Secondary Plan Number: Assessment Information Intervention Information Intervention Type:Mental Health Treatment Date of Service:05/24/2017 11:31 AM Patient Type:Emergency Room Staff Member:Sasha Beauchamp Hours:0.5 Discipline: Severity:1 (0-1 Hours) Comment:Referrals to , [facility] and [facility] for mental health care.
--- NOTE | 2017-05-25 18:17 | ASMTCMCOM ---
CM Note CM Note Notes: Reviewed chart, spoke w/ LOR Colindres. Pt admitted w/ intractable nausea and vomiting, poss Gastritis, acute hypokalemia, w/ hx of PTSD and fibromyalgia. Pt lives w/ her . Pt to discharge home today, independently w/ family support and no identified needs. CM avail for any further issues or concerns. Date Signed: 05/25/2017 06:17 PM Electronically Signed By:Carolina Lee
== END 2017-05-25 15:18 | disposition home or self-care (01) ==
LOC: F1N 17:14
PROVIDERS: ADMIT Family Medicine; ATTEND Family Medicine
DX: R11.2 Nausea with vomiting, unspecified (principal); E87.6 Hypokalemia
CPT/HCPCS: G0378 ×2; 96365; J2060; J2405; J2550